=== PATIENT | male | born 1990 | race Two or more races ===

== ENCOUNTER 2019-02-14 22:21 | Emergency (ER) | payer SELFPAY ==
[~2019-02-14] VITALS: Ht 177.8 cm; Wt 60.0 kg
[2019-02-15] MEDS ORDERED: TETANUS, DIPHTHERIA, PERTUSSIS VAC/PF 0.5ML (>7YR OLD) IM ONE
[2019-02-15] MEDS ORDERED: BACITRACIN 15GM TUBE TOP ONE
[2019-02-15] MEDS ORDERED: LIDOCAINE HCL 1% 20ML VIAL (Pyxis) INJ INFIL ONE (01:30)
[2019-02-15 02:19] VITALS: BP 124/84
== END 2019-02-15 11:33 | disposition home or self-care (01) ==
LOC: ER 22:21
DX: S61.215A Laceration without foreign body of left ring finger without damage to nail, initial encounter (principal); F12.10 Cannabis abuse, uncomplicated; F17.200 Nicotine dependence, unspecified, uncomplicated; W26.8XXA Contact with other sharp object(s), not elsewhere classified, initial encounter; Y93.89 Activity, other specified; Y92.89 Other specified places as the place of occurrence of the external cause; Y99.8 Other external cause status
CPT/HCPCS: 12001; 99283; J3490; Z7610; 90715